=== PATIENT | female | born 1990 | race Caucasian/White ===

== ENCOUNTER 2017-04-25 13:16 | Emergency (ER) | payer SELFPAY | END 2017-04-25 17:21 | disposition left against medical advice (07) | LOC: UCCORT 13:16 | DX: H92.02 Otalgia, left ear (principal); Z53.21 Procedure and treatment not carried out due to patient leaving prior to being seen by health care provider ==

== ENCOUNTER 2017-04-26 09:08 | Emergency (ER) | payer SELFPAY ==
[2017-04-26 09:58] VITALS: BP 103/68
--- NOTE | 2017-04-26 10:37 | UC ---
Ear Complaint HPI - HPI Summary HPI Summary: 26 yo female c/o L ear pain, progressiely worse last couple days. No fever. + sore throat. no cough. Pain worse at night. No rash. Uses q-tips, has noted yellowish drainage on q-tip, also in the morning upon awakening. Pain radiates to jaw. - History of Current Complaint Chief Complaint: UCEar Stated Complaint: EAR COMPLAINT Time Seen by Provider: 04/26/17 10:37 Hx Obtained From: Patient Hx Last Menstrual Period: unknown, depo Pain Intensity: 9 - Allergies/Home Medications Allergies/Adverse Reactions: Allergies Allergy/AdvReac Type Severity Reaction Status Date / Time No Known Allergies Allergy Verified 04/26/17 09:54 PMH/Surg Hx/FS Hx/Imm Hx Previously Healthy: Yes - Surgical History Surgical History: Yes Surgery Procedure, Year, and Place: c-sections x3, breast surgery - Family History Known Family History: Negative: Cardiac Disease, Hypertension, Diabetes - Social History Alcohol Use: None Substance Use Type: None Smoking Status (MU): Light Every Day Tobacco Smoker Type: Cigarettes Amount Used/How Often: 1/2 pack q day Have You Smoked in the Last Year: Yes Review of Systems Constitutional: Fatigue Skin: Negative Eyes: Negative ENT: Other - see hpi Respiratory: Negative Cardiovascular: Negative Gastrointestinal: Negative Genitourinary: Negative Motor: Negative Neurovascular: Negative Musculoskeletal: Negative Neurological: Negative Psychological: Negative Is Patient Immunocompromised?: No All Other Systems Reviewed And Are Negative: Yes Physical Exam Triage Information Reviewed: Yes Appearance: Thin, Other: - sitting up, conversing easily and appropriately. NAD. Looks tired, nontoxic general. Vital Signs: Initial Vital Signs Temp 98.6 F 04/26/17 09:50 Pulse 77 04/26/17 09:50 Resp 14 04/26/17 09:50 BP 103/68 04/26/17 09:50 Pulse Ox 100 04/26/17 09:50 Vital Signs Reviewed: Yes Eye Exam: Normal - grossly normal. ENT: Positive: Pharyngeal erythema - post pharyx erythematous, no ann-marie sores although pt noted that she noted a white spot yesterday, Other - R TM rodriguez, rtx' d. Intact. EAC ok. L TM red and rodriguez. Bullous irritation ant inf TM. + white yellow detritus. I do not see ann-marie TM rupture, although suspicion is present. Neck exam: Normal Neck: Positive: Supple, Nontender, No Lymphadenopathy Respiratory Exam: Normal Respiratory: Positive: Chest non-tender, Lungs clear, Normal breath sounds, No respiratory distress Cardiovascular Exam: Normal Cardiovascular: Positive: RRR, No Murmur, Pulses Normal, Brisk Capillary Refill Abdominal Exam: Normal Musculoskeletal Exam: Normal - gait steady Neurological Exam: Normal - grossly nonfocal Psychological Exam: Normal - conversing easily and appropriately Ear Complaint Course/Dx - Course Course Of Treatment: RST - negative. Reviewed with pt coa / tx plan. Reviewed need for f/u with pcp. Questions as posed answered to the best of my ability. Rx - cortisporin opthalmic drops (not otic, d/t unclear if tm fully intact). Azithromycin. - Differential Dx/Diagnosis Provider Diagnoses: Otitis media with concern for possible bullous otitis. Otitis externa (likely related to q-tip use) Discharge - Discharge Plan Condition: Stable Disposition: HOME Prescriptions: Azithromyxin YURIY (NF) [Z-Yuriy (Zithromax) 250 mg tabs #6] 2 tab PO .TODAY, THEN 1 DAILY #6 tab Neomycin/Polym/HC OPTH.SUSP* [Cortisporin OPHTH.SUSP*] 2 drop LEFT EAR Q6H #1 btl Patient Education Materials: Antihistamine (By mouth), Ibuprofen (By mouth), Otitis Externa (ED), Ear Infection (ED) Referrals: KELECHI Ponce [Primary Care Provider] - Additional Instructions: Follow up with your primary care physician in the next 1-2 weeks for ear check. Please try to avoid q-tips in the ear. Seek medical attention for worse or new problems. You have blisters on your eardrum (ant inferior region), this may be "bullous otitis media"
== END 2017-04-26 11:57 | disposition home or self-care (01) ==
LOC: UCCORT 09:08
DX: H60.92 Unspecified otitis externa, left ear (principal); F17.210 Nicotine dependence, cigarettes, uncomplicated
CPT/HCPCS: 87651; 99212; G0463

== ENCOUNTER 2017-06-21 09:17 | Emergency (ER) | payer SELFPAY ==
--- NOTE | 2017-06-21 10:35 | UC ---
Dental HPI - HPI Summary HPI Summary: Pt presents with ?dental abscess left upper tooth. She was seen at [facility] and told that she needs three teeth pulled, but needed to take some Amoxicillin first due to potential infect. She has been taking this for 3 days, but woke up this morning with increased pain on the upper left side of her mouth. She also mentions that she has had some lower abdominal cramping that started 2 days ago with her menstrual period. She says that she has been on control for years, but recently switched to a new OBC and this is the first time she has had her period many months. Has a history of ovarian cysts. Today her pelvic pain is improved and much more tolerable. Denies fever, chills, SOB, chest pain, dysuria, vaginal discharge, pain with intercourse, n/v/d/c. - History of Current Complaint Hx Obtained From: Patient Hx Last Menstrual Period: unknown, depo Onset/Duration: Gradual Onset Severity: Moderate Pain Intensity: 6 Pain Scale Used: 0-10 Numeric <Robert Styles - Last Filed: 06/21/17 14:36> <Fernanda Hall - Last Filed: 06/22/17 20:19> - History of Current Complaint Stated Complaint: TOOTHACHE Time Seen by Provider: 06/21/17 10:34 - Allergies/Home Medications Allergies/Adverse Reactions: Allergies Allergy/AdvReac Type Severity Reaction Status Date / Time azithromycin [From Zithromax] AdvReac Yeast Verified 06/21/17 10:47 Infection Home Medications: Home Medications Amoxicillin PO (*) [Amoxicillin 500 MG CAP*] 500 mg PO Q8HR 06/21/17 [History Confirmed 06/21/17] Naproxen Sodium [Naproxen Sodium ER 500 MG TAB] 500 mg PO BID PRN 06/21/17 [ History Confirmed 06/21/17] Norethindrone [Lyza] 1 tab PO DAILY 06/21/17 [History Confirmed 06/21/17] PMH/Surg Hx/FS Hx/Imm Hx Previously Healthy: Yes - Surgical History Surgical History: Yes Surgery Procedure, Year, and Place: c-sections x3, breast surgery - Family History Known Family History: Negative: Cardiac Disease, Hypertension, Diabetes - Social History Lives: With Family Alcohol Use: None Substance Use Type: None Smoking Status (MU): Light Every Day Tobacco Smoker Type: Cigarettes Amount Used/How Often: 1/2 pack q day Have You Smoked in the Last Year: Yes <Robert Styles - Last Filed: 06/21/17 14:36> Review of Systems Constitutional: Negative Skin: Negative Eyes: Negative ENT: Dental Pain Respiratory: Negative Cardiovascular: Negative Gastrointestinal: Negative Genitourinary: Other - Pelvic pain Neurovascular: Negative Musculoskeletal: Negative Neurological: Negative Psychological: Negative All Other Systems Reviewed And Are Negative: Yes <Robert Styles - Last Filed: 06/21/17 14:36> Physical Exam Triage Information Reviewed: Yes Appearance: Well-Appearing, No Pain Distress, Well-Nourished Vital Signs Reviewed: Yes ENT: Positive: Pharynx normal, TMs normal, Dental tenderness - Tooth #2-3, Uvula midline. Negative: Pharyngeal erythema, TM bulging, TM dull, TM red, Tonsillar swelling, Tonsillar exudate, Hoarse voice Dental: Positive: Percussion Tenderness @ - Tooth #2-3, Gross Decay/Caries @ - Throughout, Abscess @ - Tooth #2-3. Negative: Cervical Lymphadenopathy, Bleeding Neck: Positive: Supple, Nontender, No Lymphadenopathy Respiratory: Positive: Lungs clear, Normal breath sounds, No respiratory distress, No accessory muscle use Cardiovascular: Positive: RRR, No Murmur, Pulses Normal Abdomen Description: Positive: No Organomegaly, Soft, Other: - Mild TTP suprapubic. Negative: CVA Tenderness (R), CVA Tenderness (L), Distended, Guarding, McBurney's Point Tenderness Bowel Sounds: Positive: Present Neurological: Positive: Alert Psychological: Positive: Age Appropriate Behavior Skin: Negative: rashes, significant lesion(s) - Additional Comments Refused pelvic exam - currently menstruating. <Robert Styles - Last Filed: 06/21/17 14:36> Vital Signs: Initial Vital Signs Temp 98.7 F 06/21/17 10:49 Pulse 73 06/21/17 10:49 Resp 16 06/21/17 10:49 BP 113/58 06/21/17 10:49 Pulse Ox 96 06/21/17 10:49 <Fernanda Hall - Last Filed: 06/22/17 20:19> Dental Complaint Course/Dx - Course Course Of Treatment: US: IMPRESSION: Unremarkable pelvic ultrasound. Will change her amoxicillin to clindamycin and have her f/u with her dentist. Her UA , , and US were negative. I will refer her to OBGYN for further evaluation for, what I suspect is, menstrual pain - Differential Dx/Diagnosis Provider Diagnoses: Dental abscess. menstrual pain <Osiel Stylesothy - Last Filed: 06/21/17 14:36> Discharge - Sign-Out/Discharge Documenting (check all that apply): Discharge - Billing Disposition and Condition Condition: STABLE Disposition: HOME <Robert Styles - Last Filed: 06/21/17 14:36> - Sign-Out/Discharge Documenting (check all that apply): Discharge - Billing Disposition and Condition Condition: STABLE Disposition: HOME <Fernanda Hall - Last Filed: 06/22/17 20:19> - Discharge Plan Condition: Stable Disposition: HOME Prescriptions: Clindamycin HCl 300 mg PO TID #21 capsule Magic Mouth Was-TESSEI/MAAL/LIDO* 5 ml SWISH SPIT TID #100 ml Patient Education Materials: Dental Abscess (ED) Referrals: KELECHI Ponce [Primary Care Provider] - Rashi Ruiz MD [Medical Doctor] - As Soon As Possible Additional Instructions: If you develop a fever, shortness of breath, chest pain, new or worsening symptoms - please call your PCP or go to the ED. 1) Please schedule a follow up appointment with your dentist and with OBGYN at the number below for further evaluation of your menstrual pain. Attestation Statement User Type: Provider - I was available for consult. This patient was seen by the GERR[facility]. The patient was not presented to, seen by, or examined by me. -Vazquezj <Fernanda Hall - Last Filed: 06/22/17 20:19>
[2017-06-21 10:55] VITALS: BP 113/58
--- NOTE | 2017-06-21 12:09 | RAD ---
Indication: Pelvic pain. Real-time sonography of the pelvis was performed utilizing endovaginal technique. The uterus measures 8.2 x 3.5 x 4.6 cm. Endometrial echo measures 3 mm. Right ovary measures 3.3 x 1.9 x 2.3 cm. Left ovary measures 2.8 x 2.1 x 2.5 cm. No adnexal masses are noted. Doppler interrogation demonstrates flow in both ovaries. IMPRESSION: Unremarkable pelvic ultrasound.
== END 2017-06-21 12:26 | disposition home or self-care (01) ==
LOC: UCCORT 09:17
DX: K04.7 Periapical abscess without sinus (principal); N94.6 Dysmenorrhea, unspecified; F17.210 Nicotine dependence, cigarettes, uncomplicated
CPT/HCPCS: 76830; 81003; 84702; 99212; G0463